=== PATIENT | male | born 1930 | race Caucasian/White ===

== ENCOUNTER → 2017-03-14 | Outpatient (CLI) | payer MEDICARE, OTHER | LOC: KOH-I 11:29 | DX: S51.002A Unspecified open wound of left elbow, initial encounter (principal); L02.413 Cutaneous abscess of right upper limb | CPT/HCPCS: 73080 ==

== ENCOUNTER → 2017-04-11 | Outpatient (CLI) | payer MEDICARE, OTHER ==
[2017-04-11 09:23] LABS: BUN/CREATININE RATIO 24 (0-10)
== END ==
LOC: LAB 08:33
PROVIDERS: Internal Medicine Cardiovascular Disease
DX: I10 Essential (primary) hypertension (principal)
CPT/HCPCS: 36415; 80053; 80061; 84443

== ENCOUNTER 2017-04-15 10:11 | Emergency (ER) | payer MEDICARE, OTHER ==
[2017-04-15 11:15] LABS: HEMOGLOBIN 11.6 gm/dl (14.0-17.5); RED BLOOD COUNT 4.2 M/UL (4.20-5.50); WHITE BLOOD COUNT 7.1 K/UL (4.5-11.0)
[2017-04-15 11:57] LABS: BUN/CREATININE RATIO 23 (0-10)
== END 2017-04-15 13:25 | disposition home or self-care (01) ==
LOC: ER1 10:11
PROVIDERS: Preventive Medicine Occupational Medicine
DX: I50.9 Heart failure, unspecified (principal); Z87.891 Personal history of nicotine dependence
CPT/HCPCS: 36415; 71010; 80053; 81001; 82550; 82553; 83874; 83880; 84484; 85025; 93005; 96360; 96361; 99285

== ENCOUNTER → 2017-04-26 | Outpatient (CLI) | payer MEDICARE, OTHER | LOC: HEART 5 08:00 | DX: R06.02 Shortness of breath (principal) | CPT/HCPCS: 93306 ==